=== PATIENT | female | born 1985 | race Caucasian/White ===

== ENCOUNTER 2016-07-19 19:59 | Inpatient (IN) | payer OTHER ==
[2016-07-19] MEDS: LACTATED RINGER'S 1000 ML INJ 1,000 ML IV SCH ×2 (13:04→23:04)
[~2016-07-19 19:59] MED LIST: OXYTOCIN 30 UNITS-500ML PREMIX 500 ML IV PRN
[2016-07-19] MEDS ORDERED: SODIUM CHLORIDE 0.9% FLUSH 5 ML FLUSH IV FLUSH PRN (20:30)
[2016-07-19] MEDS ORDERED: CITRIC ACID-SODIUM CITRATE LIQ 30 ML UDC PO SCH ×2 (20:30→22:00)
[2016-07-19] MEDS ORDERED: DINOPROSTONE 10 MG VAG INSERT VAGINAL ONE (20:30)
[2016-07-19] MEDS ORDERED: ONDANSETRON HCL 4 MG/2 ML VIAL IV PRN (20:30)
[2016-07-19] MEDS ORDERED: NS 1000 ML IV PRN (20:30)
[2016-07-19] MEDS ORDERED: NS 500 ML BOLUS IV PRN (20:30)
[2016-07-19] MEDS ORDERED: LACTATED RINGER'S 1000 ML BOLUS IV PRN (20:30)
[2016-07-19] MEDS ORDERED: LIDOCAINE HCL 1% 50 ML VIAL INFIL PRN (20:30)
[2016-07-19] MEDS ORDERED: OXYTOCIN 30 UNITS 500ML PREMIX IV ONE (20:30)
[2016-07-19] MEDS ORDERED: LIDOCAINE HCL 1% 50 ML VIAL I-DERMAL PRN (20:30)
[2016-07-19] MEDS ORDERED: MINERAL OIL 10 ML VIAL TOP PRN (20:30)
[2016-07-19 20:32] VITALS: BP 122/92; PULSE 98
[2016-07-19] MEDS: LACTATED RINGER'S 1000 ML IV SCH (20:59)
[2016-07-19] MEDS: SODIUM CHLORIDE 0.9% FLUSH 5 ML FLUSH IV FLUSH SCH (21:00)
[2016-07-19] MEDS ORDERED: ZOLPIDEM TARTRATE 10 MG TAB PO PRN (21:00)
[2016-07-19 21:45] LABS: BASOPHIL # 0.1 TH/MM3 (0-0.2); BASOPHIL % 0.5 % (0.0-2.0); EOSINOPHIL # 0.1 TH/MM3 (0-0.4); EOSINOPHIL % 0.6 % (0.0-4.0); HEMATOCRIT 38.5 % (35.0-46.0); HEMO FLAGS DIFF FINAL; LYMPH % 22.7 % (9.0-44.0); LYMPHOCYTE # 2.3 TH/MM3 (1.0-4.8); MEAN CELL VOLUME 93.7 FL (80.0-100.0); MEAN CORPUSCULAR HEMOGLOBIN 32.3 PG (27.0-34.0); MEAN CORPUSCULAR HGB CONC 34.4 % (32.0-36.0); MONO % 6.8 % (0.0-8.0); NEUT % 69.4 % (16.0-70.0); PLATELET COUNT 181 TH/MM3 (150-450); RED BLOOD COUNT 4.11 MIL/MM3 (4.00-5.30); WHITE BLOOD COUNT 10.1 TH/MM3 (4.0-11.0)
[2016-07-19 21:57] VITALS: BP 113/72; PULSE 74
[2016-07-19] MEDS ORDERED: LACTATED RINGER'S 1000 ML IV ONE (22:00)
[2016-07-19] MEDS ORDERED: ceFAZolin 1,000 MG/NS 100 ML IV SCH ×2 (22:00)
[2016-07-19] MEDS ORDERED: LACTATED RINGER'S 1000 ML IV SCH (22:00)
[2016-07-19] MEDS ORDERED: ONDANSETRON HCL 4 MG/2 ML VIAL ONE (22:02)
[2016-07-19] MEDS ORDERED: OXYTOCIN 10 UNIT/ML AMP ONE (22:02)
[2016-07-19] MEDS ORDERED: MORPHINE SULFATE PF 5 MG/10 ML VIAL ONE (22:02)
[2016-07-19] MEDS ORDERED: ACETAMINOPHEN 1000 MG/100 ML VIAL IV ONE (22:03)
[2016-07-19 22:06] LABS: BLOOD, URINE NEG (NEG); GLUCOSE,URINE NEG (NEG); KETONE, URINE NEG (NEG); MUCUS URINE FEW /lpf (OCC); NITRITE,URINE NEG (NEG); PH, URINE 6.5 (5.0-8.5); SQUAMOUS EPITHELIAL CELL URINE 3 /hpf (0-5); URINE COLOR LIGHT-YELLOW (YELLW/STRAW)
[2016-07-19 22:07] LABS: COMMENT (UR) CULT NOT INDICATED; CULTURE IF INDICATED CULT NOT INDICATED
[2016-07-19] MEDS ORDERED: ceFAZolin INJ 1,000 MG VIAL ONE (22:07)
[2016-07-19] MEDS ORDERED: EPIDURAL-NO SYSTEMIC NARCOTICS XX PRN (22:15)
[2016-07-19] MEDS ORDERED: EPIDURAL-DIPHENHYDRAMINE HCL 50 MG CAP PO PRN (22:15)
[2016-07-19] MEDS ORDERED: EPIDURAL-DIPHENHYDRAMINE HCL 50 MG/ML VIAL IV PUSH PRN (22:15)
[2016-07-19] MEDS ORDERED: EPIDURAL-DO NOT ADMINISTER ANTICOAGULANTS XX PRN (22:15)
[2016-07-19] MEDS ORDERED: EPIDURAL-NALOXONE HCL 0.4 MG/ML AMP IV PRN (22:15)
[2016-07-19 23:09] LABS: MEAN CORPUSCULAR HGB CONC 36.4 % (32.0-36.0)
[2016-07-19 23:13] VITALS: BP 99/66; PULSE 79; RESP 20; TEMP 97.7; O2SAT 98
[2016-07-19] MEDS ORDERED: ZOLPIDEM TARTRATE 5 MG TAB PO PRN (23:15)
[2016-07-19] MEDS: ACETAMINOPHEN 1000 MG/100 ML VIAL IV SCH (23:15)
[2016-07-19] MEDS ORDERED: MEASLES, MUMPS, RUBELLA VACCINE 0.5 ML VIAL SQ ONE (23:15)
[2016-07-19] MEDS ORDERED: OXYTOCIN 30 UNITS-500ML PREMIX 500 ML IV ONE (23:15)
[2016-07-19] MEDS ORDERED: KETOROLAC TROMETHAMINE 60 MG/2 ML (IM) VIAL IM PRN (23:15)
[2016-07-19] MEDS ORDERED: ONDANSETRON HCL 4 MG/2 ML VIAL IVP PRN (23:15)
[2016-07-19] MEDS ORDERED: SODIUM CHLORIDE 0.9% FLUSH 5 ML FLUSH IV PRN (23:15)
[2016-07-19] MEDS ORDERED: SIMETHICONE 80 MG CHEWABLE TAB PO PRN (23:15)
[2016-07-19 23:30] VITALS: BP 112/77; PULSE 80; RESP 20; O2SAT 99
[2016-07-19 23:45] VITALS: BP 111/75; PULSE 68; RESP 18; O2SAT 99
[2016-07-19] MEDS ORDERED: KETOROLAC TROMETHAMINE 60 MG/2 ML (IM) VIAL IM ONE (23:53)
[2016-07-19] MEDS ORDERED: LACTATED RINGER'S 1000 ML INJ 1,000 ML IV ONE (23:57)
[2016-07-20] VITALS (7 sets, daily range): BP systolic 102–115; BP diastolic 67–74; PULSE 62–79; RESP 16–18; TEMP 97.4–98.3; O2SAT 99
[2016-07-20] MEDS ORDERED: OXYTOCIN 30 UNITS-500ML PREMIX 500 ML ONE
[2016-07-20] MEDS: LACTATED RINGER'S 1000 ML IV SCH (04:48)
[2016-07-20 05:58] LABS: AUTOMATED NEUTROPHIL # 10.5 TH/MM3 (1.8-7.7); BASOPHIL % 0.3 % (0.0-2.0); EOSINOPHIL % 0.1 % (0.0-4.0); HEMATOCRIT 31.3 % (35.0-46.0); LYMPHOCYTE # 1.7 TH/MM3 (1.0-4.8); MEAN CELL VOLUME 93.2 FL (80.0-100.0); MONO % 6.5 % (0.0-8.0); NEUT % 80.1 % (16.0-70.0); PLATELET COUNT 153 TH/MM3 (150-450); RED BLOOD COUNT 3.36 MIL/MM3 (4.00-5.30); RED CELL DISTRIBUTION WIDTH 12.9 % (11.6-17.2); WHITE BLOOD COUNT 13.2 TH/MM3 (4.0-11.0)
[2016-07-20 05:59] LABS: HEMO FLAGS AUTO DIFF
[2016-07-20] MEDS: KETOROLAC TROMETHAMINE 30 MG/ML (IVP) VIAL IV PUSH SCH ×2 (06:26)
[2016-07-20 06:28] LABS: BICARBONATE 25.4 MEQ/L (21.0-32.0); POTASSIUM 4.1 MEQ/L (3.5-5.1)
[2016-07-20 07:45] LABS: SCAN/DIFF AUTO DIFF CONFIRMED
[2016-07-20] MEDS: SODIUM CHLORIDE 0.9% FLUSH 5 ML FLUSH IV FLUSH SCH (09:00)
[2016-07-20] MEDS: SODIUM CHLORIDE 0.9% FLUSH 5 ML FLUSH IV SCH (09:00)
[2016-07-20] MEDS: ACETAMINOPHEN 1000 MG/100 ML VIAL IV SCH (09:03)
--- NOTE | 2016-07-20 09:36 | MH ---
cc: DAWIT DAUGHERTY DATE OF ADMISSION: 07/19/2016 ADMISSION DIAGNOSIS at 39 weeks. HISTORY OF PRESENT ILLNESS The patient is 30-year-old white female para 0-0-1-0 with a LMP of 10/19/2015, EDC of 07/25 2016. She is now admitted for induction of labor. PAST MEDICAL HISTORY 1. Previous surgery age 20 had a left arm fracture required plates and pins. 2. In 2007 breast augmentation. MEDICATIONS Vitamins. ALLERGIES None TRANSFUSIONS None. OBSTETRICAL HISTORY History of PCOS, required Letrozole induction of ovulation. SOCIAL HISTORY She is . She is a realtor. Alcohol, tobacco and drugs are none. FAMILY HISTORY Noncontributory. PHYSICAL EXAMINATION GENERAL: A well-nourished, well-developed white female. VITAL SIGNS: Stable. HEENT: Examination is normal. CHEST: Clear. HEART: Regular rate. BREASTS: Symmetrical. ABDOMEN: Gravid. Estimated weight is 3200 grams. PELVIC: Cervix is closed. Vault vertex. Zero station, intact. ASSESSMENT As above. PLAN She is now admitted for induction of labor per request. She is aware should she have failure to progress or distress she may require delivery. She would like to proceed. Of note her GBS culture is negative. MD PARI Wu/KK /4:09 PM /9:31 AM RENETTA
[2016-07-20] MEDS: oxyCODONE/ACETAMINOPHEN 5 MG/325 MG TAB PO PRN ×4 (13:51→23:41)
[2016-07-20] MEDS: IBUPROFEN 600 MG TAB PO PRN ×2 (13:51→23:40)
[2016-07-20] MEDS: DOCUSATE SODIUM 50 MG/SENNA 8.6 MG TAB PO PRN (23:41)
[2016-07-21] MEDS: IBUPROFEN 600 MG TAB PO PRN ×3 (06:30→18:19)
[2016-07-21] MEDS: oxyCODONE/ACETAMINOPHEN 5 MG/325 MG TAB PO PRN ×3 (06:31→18:17)
[2016-07-21 09:00] VITALS: BP 105/62; PULSE 82; RESP 16; TEMP 97.9
[2016-07-21] MEDS: SODIUM CHLORIDE 0.9% FLUSH 5 ML FLUSH IV SCH (09:00)
[2016-07-21] MEDS: SODIUM CHLORIDE 0.9% FLUSH 5 ML FLUSH IV FLUSH SCH (09:00)
[2016-07-21] MEDS ORDERED: DIPHTH/TETANUS/ACEL PERTUSSIS (BOOSTER) 0.5 ML VIAL/PFS IM ONE (09:00)
[2016-07-21] MEDS: KETOROLAC TROMETHAMINE 30 MG/ML (IVP) VIAL IV PUSH SCH (12:00)
[2016-07-21] MEDS: DOCUSATE SODIUM 50 MG/SENNA 8.6 MG TAB PO PRN (18:15)
[2016-07-21 21:00] VITALS: BP 113/62; PULSE 62; RESP 16; TEMP 98
[2016-07-22] MEDS: oxyCODONE/ACETAMINOPHEN 5 MG/325 MG TAB PO PRN ×3 (00:11→14:23)
[2016-07-22] MEDS: IBUPROFEN 600 MG TAB PO PRN ×2 (00:11→13:06)
[2016-07-22 12:44] VITALS: BP 115/76; PULSE 71; RESP 16; TEMP 97.9
[2016-07-22] MEDS ORDERED: IBUP-232 PO (13:23)
--- NOTE | 2016-07-22 13:24 | HHI.DCPOC ---
Discharge Care Plan Diagnosis: (1) delivery, delivered, current hospitalization Your Health Problems Are: delivery Report Symptoms to Your Doctor -Temperate above 100.5 degrees -Redness, of incision or excessive or foul smelling drainage -Unusual pain or calf pain -Increased vaginal bleeding -Painful or difficulty urinating -Feelings of extreme sadness or anxiety after 2 weeks Goals to Promote Your Health * To prevent worsening of your condition and complications * To maintain your health at the optimal level Directions to Meet Your Goals Take your medications as prescribed Follow your dietary instruction Follow activity as directed Ensure plenty of rest for recovery Drink fluids for hydration Keep your appointments as scheduled Take your immunizations and boosters as scheduled If your symptoms worsen call your PCP, if no PCP go to Urgent Care Center or Emergency Room Smoking is Dangerous to Your Health. Avoid second hand smoke Call the 24-hour crisis hotline for domestic abuse at Abril Montiel MD Jul 22, 2016 13:24
--- NOTE | 2016-07-22 13:27 | HHI.OB ---
Subjective Post Operative Day: 3 Remarks pain controlled, mod lochia, emily po, +void/flatus Objective Vitals/I&O Vital Signs Date Time Temp Pulse Resp B/P Pulse Ox O2 Delivery O2 Flow Rate FiO2 07/22/16 12:44 71 16 115/76 07/22/16 12:44 97.9 07/21/16 21:00 113/62 07/21/16 21:00 98.0 62 16 Result Diagram: 07/20/1624 07/20/16 05 Objective Remarks GENERAL: Well-nourished, well-developed patient. CARDIOVASCULAR: Regular rate and rhythm without murmurs, gallops, or rubs. RESPIRATORY: Breath sounds equal bilaterally. No accessory muscle use. ABDOMEN/GI: Abdomen soft, non-tender, bowel sounds present. Incision: Clean, dry and intact. Fundus: Firm, non-tender at umbilicus. GENITOURINARY: Light to moderate bleeding. EXTREMITIES: No cyanosis or edema, non-tender, without signs of DVT. Medications and IVs Current Medications Medications (Trade) Dose Ordered Sig/Zoila Route Start Time Stop Time Status Last Admin Lactated Ringer's 1,000 ml @ 125 mls/hr Q8H IV 07/19/16 20:30 07/20/16 04:48 Lactated Ringer's 1,000 ml @ 3,000 mls/hr BOLUS PRN IV 07/19/16 20:30 Sodium Chloride 500 ml @ 1,000 mls/hr BOLUS PRN IV 07/19/16 20:30 (NS 1000 ml Inj) 1,000 ml @ 100 mls/hr Q10H PRN IV 07/19/16 20:30 (Zofran Inj) 4 mg Q6H PRN IV 07/19/16 20:30 (fentaNYL INJ) 50 mcg Q1H PRN IV PUSH 07/19/16 20:30 (fentaNYL INJ) 100 mcg Q1H PRN IV PUSH 07/19/16 20:30 (Muri-Lube Oil) 10 ml UNSCH PRN TOP 07/19/16 20:30 (Ambien) 10 mg HS PRN PO 07/19/16 21:00 (NS Flush) 2 ml BID IV FLUSH 07/19/16 21:00 IV Flush 2 ml 2 ml UNSCH PRN IV FLUSH 07/19/16 20:30 (Lr 1000 ml Inj) 1,000 ml @ 150 mls/hr Q6H40M IV 07/19/16 22:00 07/19/16 23:07 (NS Flush) 2 ml BID IV 07/20/16 09:00 (NS Flush) 2 ml UNSCH PRN IV 07/19/16 23:15 (Mylicon Chew) 80 mg QID PRN PO 07/19/16 23:15 (Motrin) 600 mg Q6H PRN PO 07/19/16 23:15 07/22/16 13:06 (Percocet 5-325 Mg) 1 tab Q4H PRN PO 07/19/16 23:15 07/21/16 18:17 (Percocet 5-325 Mg) 2 tab Q4H PRN PO 07/19/16 23:15 07/22/16 10:15 (Torrie-Colace) 2 tab Q12H PRN PO 07/19/16 23:15 07/21/16 18:15 (Ambien) 5 mg HS PRN PO 07/19/16 23:15 (Zofran Inj) 4 mg Q6H PRN IVP 07/19/16 23:15 (Toradol Inj) 30 mg Q6HR IV PUSH 07/20/16 00:00 07/20/16 06:26 Assessment/Plan Problem List: (1) delivery, delivered, current hospitalization Plan: routine po care d/c home today Abril Montiel MD Jul 22, 2016 13:27
--- NOTE | 2016-07-22 14:05 | MP ---
cc: DOREEN DOMINGUEZ DMD DATE OF SURGERY: 07/19/2016 PREOPERATIVE DIAGNOSIS: 1. Term 2. bradycardia. POSTOPERATIVE DIAGNOSIS: 1. Term . 2. bradycardia. 3. Delivered. OPERATIVE PROCEDURE PERFORMED: Primary low section. ANESTHESIA: Spinal SURGEON: Christiano William MD. COMPUTER PROGRAMMING SUPERVISOR: NORMA Mckeon. ESTIMATED BLOOD LOSS FOR THE PROCEDURE: About 500 mL. FLUIDS: One liter of crystalloid. DESCRIPTION OF THE PROCEDURE IN DETAIL / OBJECTIVE FINDINGS: Following the induction of adequate spinal anesthesia, the patient was prepped and draped supine on the operating table in left lateral tilt position in the usual sterile fashion with the bladder being drained by Herrera catheterization. The patient had been admitted for an induction of labor but while preparing for induction, the had suffered a 4-minute episode of bradycardia. Induction was cancelled and she was prepared for section. The abdomen was opened through a Pfannenstiel incision using a knife to cut down through skin to the fascia. The fascia was opened transversely and stripped from the muscles, rectus muscle split in the midline and peritoneum sharply without incident. The bladder flap was taken down sharply and retracted with Columbiana blade. The lower uterine segment was incised transversely with a knife and extended by blunt dissection. There was clear fluid. The baby was in LOT position. The vacuum extractor was applied to the occiput and used to gently lift the head through the abdominal wound. Mouth was suctioned, cord clamped and cut and the baby passed to the awaiting team, a viable vigorous male with Apgars 9 and 9 and weight 7 pounds, 14 ounces. Cord gas was collected for typing. Placenta manually removed. The uterine cavity was cleaned with laps. The uterus was exteriorized and closed with two layers of running suture, first with a running locking stitch of 0 Vicryl and the second with a running imbricating stitch of #0 Vicryl. On posterior inspection, uterus, tubes and ovaries were normal. The uterus was returned to the pelvic cavity, irrigation performed. No bleeding was evident. The bladder flap was closed with a running stitch of 3-0 Vicryl. All instruments were removed. Counts were correct. The anterior peritoneum was closed with running stitch of 2-0 Vicryl. Fascia closed with running locking stitch of 0 Vicryl corner to midline and tied, subcu closed with running 3-0 Vicryl and skin with subcuticular Monocryl. Dermabond applied. All counts were correct and the patient was awake and taken to the recovery room in good position. MD PARI Wu/NITESH /11:12 PM /1:41 PM MTDMari
== END 2016-07-22 14:47 | disposition home or self-care (01) | DRG 766 ==
LOC: H2EA 19:59 → H1EA 07-20 00:22 → UNDODISIN 07-22 14:47 → H1EA 07-24 10:42
PROVIDERS: ADMIT Obstetrics & Gynecology; ATTEND Obstetrics & Gynecology
PROC: 10D00Z1 Extraction of Products of Conception, Low, Open Approach (ICD-10-PCS; principal; 2016-07-19)
DX: O76 Abnormality in fetal heart rate and rhythm complicating labor and delivery (principal); Z37.0 Single live birth; Z3A.39 39 weeks gestation of pregnancy
CPT/HCPCS: 59025; 80048; 81001; 85025; 85461; 86850; 86900; 86901; 90384; 90715; J0131; J0690; J1200; J1885; J2274; J2405; J2590; J2790; J7120